=== PATIENT | male | born 1985 | race Caucasian/White ===

== ENCOUNTER 2024-11-16 21:28 | Emergency (ER) | payer OTHER ==
[~2024-11-16] VITALS: Ht 167.6 cm; Wt 52.3 kg
[2024-11-16 22:39] VITALS: BP 116/61; PULSE 109; RESP 18; TEMP 98.6; O2SAT 96
== END 2024-11-17 00:22 | disposition home or self-care (01) ==
LOC: EMS 21:33
DX: T75.4XXA Electrocution, initial encounter (principal); Z65.3 Problems related to other legal circumstances; Y35.839A Legal intervention involving a conducted energy device, unspecified person injured, initial encounter; Y93.89 Activity, other specified; Y92.89 Other specified places as the place of occurrence of the external cause; Y99.8 Other external cause status
CPT/HCPCS: 99283; Z7502